=== PATIENT | male | born 1940 | race Caucasian/White ===

== ENCOUNTER 2016-08-22 15:29 | Inpatient (IN) | payer MEDICARE, BC ==
[~2016-08-22] VITALS: Ht 157.5 cm; Wt 61.7 kg
--- NOTE | ~2016-08-22 | CN ---
PATIENT NAME:HOLA NICOLAS MEDICAL RECORD: [id number] : 38 LOCATION:[facility] ADMIT DATE: 08/22/16 ACCOUNT: [id number] CONSULTING PHYSICIAN: DIA LOVE MD REFERRING PHYSICIAN: CHEYENNE MURPHY MD DATE OF CONSULTATION: 08/23/2016 HISTORY OF PRESENT ILLNESS: Mr. Nicolas is a 76-year-old white male, who has had a 9-day history of increasing back pain resulting in difficulty ambulation. His notes apparent weakness on his right lower extremity and he has had a previous history of weakness in his lower extremities, which he had an extensive workout out of state with apparently no definite cause as per the . He denies any bowel or bladder change. He complains of low back pain after a fall 9 days ago. PHYSICAL EXAMINATION: GENERAL: Shows well-developed, well-nourished 76-year-old white male with complaints of back pain, lying supine in the bed. NEUROLOGIC: Cranial nerves intact. Motor strength is 5/5 and equal in all 4 extremities to detailed testing. DTRs are 2+ and equal over biceps, triceps and wrist. Patella is 3+ and equal. Achilles is 3+ and equal. He has 6 beats of clonus, both feet and decreased ____ both greater toes. Plain films show compression fractures at L1, L2, L3, and L5, with approximately with anywhere between 30% to 50% loss of height. IMPRESSION: Subacute lumbar compression fractures, unknown neuropathy. PLAN: MRI to determine which compression fractures are recent and rule out any spinal cord compression in light of his ____ tract signs with sustained clonus. Thank you for consult and we will follow with you. TRANSINT:[id number] Voice Confirmation ID: [id number] DOCUMENT ID: [id number] DIA LOVE MD CC: [id number] DICTATION DATE: 08/23/16 1405 VETERINARIAN ASSISTANT: 08/23/162027 ADM IN [place] [id number] [place] [id number]
[~2016-08-22 15:29] MED LIST: ACETAMINOPHEN500 M1 PO; ADDERALL XR 2020 MG PO; ADVAIR 500/501 DISK INH; IPRAT-ALBUT 0.5-3 ML UPD; LOVENOX40 MG/0.4 SC; MULTIPLE VITAMI1 TA1 PO; ZOFRAN4 MG PO; ZOLOFT50 MG PO
[2016-08-22 16:36] LABS: BASOPHILS 0.6 % (0.0-2.0); EOSINOPHILS 4.1 % (0-7); HEMATOCRIT 40.7 % (42.0-54.0); HEMOGLOBIN 13.9 g/dL (13.5-17.5); IMMATURE GRANULOCYTES 0.9 % (0-5); LYMPHOCYTES 28.1 % (15-50); MCH 31.8 pg (26.0-34.0); MCHC 34.2 g/dL (31.0-37.0); MCV 93.1 fL (80.0-100.0); MEAN PLATELET VOLUME 10.7 fL (7.4-10.4); NEUTROPHILS 56.3 % (40-80); RBC 4.37 10x6/uL (4.20-6.10); RDW 13.5 % (11.5-14.5); WBC 6.4 10x3/uL (4.8-10.8)
[2016-08-22 16:37] LABS: PLATELET COUNT 144 10x3/uL (130-400)
[2016-08-22 17:01] LABS: APPEARANCE CLEAR (CLEAR); BILIRUBIN NEGATIVE (NEGATIVE); COLOR YELLOW (YELLOW); GLUCOSE NEGATIVE (NEGATIVE); KETONE NEGATIVE (NEGATIVE); LEUKOCYTE ESTERASE NEGATIVE (NEGATIVE); NITRITE NEGATIVE (NEGATIVE); PROTEIN NEGATIVE (NEGATIVE); SPECIFIC GRAVITY 1.015 (1.005-1.020); UROBILINOGEN NORMAL (NORMAL)
[2016-08-22 17:44] LABS: ALBUMIN 3.2 g/dL (3.4-5.0); ANION GAP 15.6 mmol/L (8-16); BILIRUBIN - TOTAL 0.47 mg/dL (0.2-1.3); CALCIUM 8.8 mg/dL (8.5-10.1); CARBON DIOXIDE 25.3 mmol/L (21.0-32.0); CREATININE - SERUM 1.1 mg/dL (0.6-1.3); POTASSIUM - SERUM 3.9 mmol/L (3.5-5.1)
[2016-08-22 19:27] VITALS: BMI 24.9
[2016-08-22] MEDS ORDERED: SINEMET 10/101 UDTAB PO (19:43)
[2016-08-22] MEDS ORDERED: CELEXA10 MG PO (19:43)
[2016-08-22] MEDS ORDERED: ASPIRIN81 MG PO (19:44)
[2016-08-22] MEDS ORDERED: VITAMIN B-121000 MCG PO (19:45)
[2016-08-22 20:00] VITALS: BP 112/69
--- NOTE | 2016-08-22 20:12 | NUR ---
NS HUNG PER ORDERS, PAN WELL, CL IN REACH
[2016-08-23] VITALS: BP 126/73
[2016-08-23 04:00] VITALS: BP 151/67
--- NOTE | 2016-08-23 06:16 | NUR ---
FLUIDS HUNG PER MAR, PAN WELL, NO NEEDS NOTED, FALL PRECAUTIONS IN PLACE, CL IN REACH
--- NOTE | 2016-08-23 07:40 | NUR ---
ASSESSMENT PER FLOW SHEET.PT WITHOUT DISTRESS.BED ALARM ON AND FUCTIONING.FALL PREVENTION IN PLACE.DOOR OPEN TO MONITOR
[2016-08-23 08:41] VITALS: BP 132/73
[2016-08-23 11:01] LABS: BASOPHILS 0.7 % (0.0-2.0); EOSINOPHILS 4.1 % (0-7); HEMATOCRIT 36.4 % (42.0-54.0); HEMOGLOBIN 12.3 g/dL (13.5-17.5); IMMATURE GRANULOCYTES 0.1 % (0-5); LYMPHOCYTES 31.5 % (15-50); MCH 31.5 pg (26.0-34.0); MCHC 33.8 g/dL (31.0-37.0); MCV 93.1 fL (80.0-100.0); MEAN PLATELET VOLUME 9.3 fL (7.4-10.4); MONOCYTES 9.2 % (2-11); NEUTROPHILS 54.4 % (40-80); RBC 3.91 10x6/uL (4.20-6.10); RDW 13.8 % (11.5-14.5); WBC 6.8 10x3/uL (4.8-10.8)
[2016-08-23 11:02] LABS: PLATELET COUNT 223 10x3/uL (130-400)
[2016-08-23 11:26] LABS: ANION GAP 12.2 mmol/L (8-16); BILIRUBIN - TOTAL 0.6 mg/dL (0.2-1.3); CALCIUM 8.3 mg/dL (8.5-10.1); CREATININE - SERUM 1.1 mg/dL (0.6-1.3); POTASSIUM - SERUM 4.2 mmol/L (3.5-5.1); PROTEIN - SERUM 6.5 g/dL (6.4-8.2)
--- NOTE | 2016-08-23 12:22 | NUR ---
REMAINS WITHOUT NEEDS.CALL LIGHT IN REACH
[2016-08-23 13:58] VITALS: BP 126/75
[2016-08-23 14:28] VITALS: Ht 157.5 cm; Wt 61.7 kg
--- NOTE | 2016-08-23 16:40 | NUR ---
Patient Name: HOLA FLOWERS Admission Status: ER Accout number: [id number] Admission Date: 08-22-2016 : 1940 Admission Diagnosis: Attending: SHARON Current LOS: 1 Anticipated DC Date: 08-28-2016 Planned Disposition: Home or Self Care Primary Insurance: MEDICARE A & B Discharge Planning Comments: CM MET WITH PATIENT AND CALLED (TANYA) REGARDING D/C NEEDS AND PLANS. PATIENT STATED HE LIVES WITH HIS AND SHE WILL DRIVE HIM HOME AT DISCHARGE. PATIENT STATED THERE ARE 2 STEPS TO ENTER HIS HOME AND NO STAIRS INSIDE. PATIENT IS INDEPENDENT WITH HIS CARE AND HAS A WALKER, WHEELCHAIR, SHOWER CHAIR, AND BS COMMODE AT HOME IF NEEDED. PATIENTS PCP IS DR. SEAMAN AND PHARMACY IS [facility] AT THE [facility]. PATIENT STATED HE DOES NOT WANT HOME HEALTH AND WILL SEE WHAT HAPPENS BEFORE DISCHARGE. CM WILL CONTINUE TO FOLLOW PATIENT WITH D/C NEEDS AND PLANS. PCP DR[facility] IN [facility] [phone] TANYA () [phone] Drone Software Development Engineer: Jemima Daley Is the patient Alert and Oriented? Yes 0 * How many steps to enter\exit or inside your home? 2 W/O RAIL 0 * PCP DR. SEAMAN 0 * Pharmacy [facility] 0 * Preadmission Environment Home with Family 0 * ADLs Independent 0 * Equipment Bedside Commode Shower Chair Walker Wheelchair 0 * List name and contact numbers for known caregivers / representatives who currently or will assist patient after discharge: TANYA (SPOUSE) [phone] 0 * Community resources currently utilized None 0 * Additional services required to return to the preadmission environment? Yes 0 * Can the patient safely return to the preadmission environment? Yes 0 * Has this patient been hospitalized within the prior 30 days at any hospital? No 0 Grand Total: 0
--- NOTE | 2016-08-23 17:00 | NUR ---
REMAINS WITHOUT NEEDS,WITHOUT DISTRESS.MONITOR
[2016-08-23 17:09] VITALS: BP 114/69
--- NOTE | 2016-08-23 18:24 | NUR ---
WITHOUT NEEDS,WITHOUT DISTRESS.CONT PLAN OF CARE
[2016-08-23 20:00] VITALS: BP 113/58
--- NOTE | 2016-08-23 20:15 | NUR ---
PT RETURNED FROM IR, ASSESSMENT COMPLETED, NO DISTRESS NOTED, DENIES NEEDS, FALL PRECAUTIONS IN PLACE, CL IN REACH, WILL MONITOR
--- NOTE | 2016-08-23 21:54 | NUR ---
LYING IN BED WATCHING TV, DENIES NEEDS AT THIS TIME, FALL PRECAUTIONS IN PLACE, CL IN REACH
--- NOTE | 2016-08-23 23:21 | NUR ---
RESTING WITH EYES CLOSED, RESP WITH EASE, NO DISTRESS NOTED, FALL PRECAUTIONS IN PLACE, CL IN REACH
[2016-08-24] VITALS: BP 101/64
--- NOTE | 2016-08-24 01:18 | NUR ---
CONTINUES TO REST WITH EYES CLOSED, RESP WITH EASE, NO DISTRESS NOTED, CL IN REACH
[2016-08-24 04:00] VITALS: BP 130/80
[2016-08-24 05:40] LABS: BASOPHILS 0.6 % (0.0-2.0); EOSINOPHILS 4.3 % (0-7); HEMATOCRIT 37.6 % (42.0-54.0); HEMOGLOBIN 12.6 g/dL (13.5-17.5); IMMATURE GRANULOCYTES 0.1 % (0-5); LYMPHOCYTES 32.1 % (15-50); MCH 31.4 pg (26.0-34.0); MCHC 33.5 g/dL (31.0-37.0); MCV 93.8 fL (80.0-100.0); MEAN PLATELET VOLUME 9.7 fL (7.4-10.4); MONOCYTES 10.1 % (2-11); NEUTROPHILS 52.8 % (40-80); PLATELET COUNT 238 10x3/uL (130-400); RBC 4.01 10x6/uL (4.20-6.10); RDW 13.6 % (11.5-14.5); WBC 6.9 10x3/uL (4.8-10.8)
[2016-08-24 06:09] LABS: CALC OSMOLALITY 280 mosm/kg (275-300); CALCIUM 8.4 mg/dL (8.5-10.1); CARBON DIOXIDE 26.4 mmol/L (21.0-32.0); CHLORIDE - SERUM 104 mmol/L (98-107); GLUCOSE 89 mg/dL (74-106); POTASSIUM - SERUM 3.7 mmol/L (3.5-5.1); SODIUM 141 mmol/L (136-145); eGFR NON AFRICAN AMERICAN 77 mL/min (90-120)
[2016-08-24 06:10] LABS: UREA NITROGEN 14 mg/dL (7-18)
[2016-08-24 08:01] VITALS: BP 139/84
[2016-08-24 09:18] LABS: FOLATE (FOLIC ACID) - SERUM 17.6 ng/mL (>3.0)
--- NOTE | 2016-08-24 11:30 | NUR ---
PATIENT SITTING UP IN BED WITH EYES OPEN. NO COMPLAINTS. FAMILY AT BEDSIDE. CALL LIGHT WITHIN REACH.
[2016-08-24 12:11] VITALS: BP 128/66
[2016-08-24 15:44] VITALS: BP 138/78
--- NOTE | 2016-08-24 18:56 | NUR ---
PT INCONTINENT OF BLADDER BED BATH AND FULL BED CHANGE DONE EARLIER THIS SHIFT WILL OCCASIONALY USE URINAL HOWEVER MOSTLY INCT. PT ALERT TO SURROUNDINGS BUT ORIENTED TO NAME ONLY. JIHAN MONITOR
[2016-08-24 20:00] VITALS: BP 138/76
--- NOTE | 2016-08-24 21:10 | NUR ---
PATIENT RESTING IN BED. CONFUSED TO TIME, PLACE, AND SITUATION. NO SIGNS OF DISTRESS NOTED. SHIFT ASSESSMENT COMLETED. DENIES ANY NEEDS AT THIS TIME. BED LOW. CALL LIGHT IN REACH
[2016-08-25] VITALS (16 sets, daily range): BP systolic 109–155; BP diastolic 65–98
[2016-08-25 06:09] LABS: BASOPHILS 0.5 % (0.0-2.0); EOSINOPHILS 5.8 % (0-7); HEMATOCRIT 37.6 % (42.0-54.0); HEMOGLOBIN 12.9 g/dL (13.5-17.5); IMMATURE GRANULOCYTES 0.2 % (0-5); LYMPHOCYTES 27.8 % (15-50); MCH 31.9 pg (26.0-34.0); MCHC 34.3 g/dL (31.0-37.0); MCV 92.8 fL (80.0-100.0); MEAN PLATELET VOLUME 9.2 fL (7.4-10.4); MONOCYTES 9.8 % (2-11); NEUTROPHILS 55.9 % (40-80); PLATELET COUNT 251 10x3/uL (130-400); RBC 4.05 10x6/uL (4.20-6.10); RDW 13.6 % (11.5-14.5); WBC 6.3 10x3/uL (4.8-10.8)
[2016-08-25 06:21] LABS: CALC OSMOLALITY 282 mosm/kg (275-300); CALCIUM 8.7 mg/dL (8.5-10.1); CARBON DIOXIDE 27.9 mmol/L (21.0-32.0); CHLORIDE - SERUM 106 mmol/L (98-107); GLUCOSE 100 mg/dL (74-106); POTASSIUM - SERUM 3.4 mmol/L (3.5-5.1); SODIUM 142 mmol/L (136-145); UREA NITROGEN 12 mg/dL (7-18); eGFR NON AFRICAN AMERICAN 77 mL/min (90-120)
--- NOTE | 2016-08-25 07:10 | NUR ---
REPORT RECEIVED FROM FIRE SUPPORT SPECIALIST NURSE. IN OR AT THIS TIME.
--- NOTE | 2016-08-25 09:10 | NUR ---
RECEIVED TO ROOM 2234 FROM RECOVERY ROOM VIA BED. ASSESSMENT COMPLETED. O2 @ 2L PER NC. FAMILY IN ROOM. BED ALARM ON. CALL LIGHT IN REACH. WILL CONTINUE WITH PLAN OF CARE. SCDs TURNED ON. C/O PAIN OF 5. NORCO PO WITH AM MEDS ADMINISTERED.
--- NOTE | 2016-08-25 10:30 | NUR ---
STATES PAIN IS UP TO A7. PASSWORD OBTAINED.
--- NOTE | 2016-08-25 11:00 | NUR ---
LYING IN BED,WITHOUT DISTRESS. AT SIDE.CALL LIGHT IN REACH
--- NOTE | 2016-08-25 12:55 | NUR ---
EATING LUNCH AT THIS TIME. FATOU LIGHT IN REACH.
--- NOTE | 2016-08-25 14:37 | NUR ---
NUTRITION MONITORING & EVAL CHART REVIEWED. PT VISIT. TOLERATING SOFT DIET, ~25% INTAKE LUNCH. WILL CONTINUE TO PROVIDE DIET, MONITOR PO INTAKE. RD FOLLOWING
--- NOTE | 2016-08-25 14:40 | NUR ---
DENIES PAIN AT THIS TIME. FAMILY IN ROOM. CALL LIGHT IN REACH.
--- NOTE | 2016-08-25 15:03 | NUR ---
Rehab Prescreening Consult recieved and the chart has been reviewed. He is S/P Kyphoplasty done earlier today. He is a good inpatient rehab candidate, but has not had any therapy. He has an OT and a PT eval pending. Rehab will follow his progress with PT, and plan to accept when the work up is completed and he can tolerate 3 hrs of therapy 5 days a week. Angelia Benites RN Clinical Liaison, rehab
--- NOTE | 2016-08-25 15:12 | NUR ---
C/O PAIN O F7. NORCO PO. CALL LIGHT IN REACH.
--- NOTE | 2016-08-25 17:20 | NUR ---
HAS NOT HAD A BOWEL MOVEMENT OF THIS TIME.
--- NOTE | 2016-08-25 19:01 | NUR ---
NO CHANGES IN INITIAL ASSESSMENT. STILL REFUSES SCDs. CALL LIGHT IN REACH. IN ROOM. WILL CONTINUE WITH PLAN OF CARE.
[2016-08-26 00:23] VITALS: BP 129/65
--- NOTE | 2016-08-26 01:21 | NUR ---
ASSESSED AT THE BEGINNING OF THE SHIFT. PT IS ALERT AND HAS SOME CONFUSION NOTED. THERE IS A SMALL DRESSING TO HIS BACK FROM SURGERY. HE HAS SCD'S AND A URINAL AT THE BEDSIDE. HIS WAS IN THE ROOM AT THE FIRST OF THE SHIFT. HE HAS NOT HAD ANY COMPLAINTS AND SEEMS TO BE COMFORTABLE AT THIS TIME. THE BED IS LOW, RAILS UP X'S 2 WITH THE CALL LIGHT AT HAND.
[2016-08-26 04:00] VITALS: BP 133/82
[2016-08-26 06:58] LABS: BASOPHILS 0.5 % (0.0-2.0); EOSINOPHILS 4.7 % (0-7); HEMATOCRIT 37.7 % (42.0-54.0); HEMOGLOBIN 12.5 g/dL (13.5-17.5); IMMATURE GRANULOCYTES 0.4 % (0-5); LYMPHOCYTES 20.3 % (15-50); MCH 31.1 pg (26.0-34.0); MCHC 33.2 g/dL (31.0-37.0); MCV 93.8 fL (80.0-100.0); MONOCYTES 8.6 % (2-11); NEUTROPHILS 65.5 % (40-80); PLATELET COUNT 260 10x3/uL (130-400); RBC 4.02 10x6/uL (4.20-6.10); RDW 13.9 % (11.5-14.5)
[2016-08-26 06:59] LABS: WBC 8.2 10x3/uL (4.8-10.8)
[2016-08-26 07:10] LABS: CALC OSMOLALITY 273 mosm/kg (275-300); CALCIUM 8.6 mg/dL (8.5-10.1); CARBON DIOXIDE 26.9 mmol/L (21.0-32.0); CHLORIDE - SERUM 103 mmol/L (98-107); CREATININE - SERUM 0.9 mg/dL (0.6-1.3); GLUCOSE 99 mg/dL (74-106); POTASSIUM - SERUM 3.6 mmol/L (3.5-5.1); SODIUM 137 mmol/L (136-145); UREA NITROGEN 12 mg/dL (7-18); eGFR NON AFRICAN AMERICAN 87 mL/min (90-120)
[2016-08-26 08:20] VITALS: BP 143/79
[2016-08-26 12:55] VITALS: BP 115/61
--- NOTE | 2016-08-26 12:55 | NUR ---
PATIENT ALERT IN LOW APONTE POSITION RESTING QUIETLY. RESPIRATIONS EVEN AND UNLABORED. SIDE RAILS UP X2. BED IN LOW POSITION. CALL LIGHT IN REACH. FAMILY AT BEDSIDE.
[2016-08-26 16:37] VITALS: BP 121/65
--- NOTE | 2016-08-26 18:59 | NUR ---
PT DAY 1 POST OP DRESSING INTACT TO BACK X 2 FROM KYPHOPLASTY YESTERDAY. PT WITH INCT EPISODES PT FAMILY AT BEDSIDE. TOLERATES ALL CARE WELL.
[2016-08-26 20:00] VITALS: BP 151/91
[2016-08-27] VITALS: BP 140/84
[2016-08-27 04:00] VITALS: BP 142/74
--- NOTE | 2016-08-27 04:44 | NUR ---
PATIENT RESTING WITH EYES CLOSED AND NO VISIBLE SIGNS OF DISTRESS. BED IN LOWEST POSITION AND CALL LIGHT WITHIN REACH.
[2016-08-27 07:02] LABS: BASOPHILS 0.4 % (0.0-2.0); EOSINOPHILS 4.6 % (0-7); HEMATOCRIT 36.7 % (42.0-54.0); HEMOGLOBIN 12.4 g/dL (13.5-17.5); IMMATURE GRANULOCYTES 0.1 % (0-5); LYMPHOCYTES 24.6 % (15-50); MCH 31.5 pg (26.0-34.0); MCHC 33.8 g/dL (31.0-37.0); MCV 93.1 fL (80.0-100.0); MONOCYTES 9.3 % (2-11); PLATELET COUNT 259 10x3/uL (130-400); RBC 3.94 10x6/uL (4.20-6.10); RDW 13.8 % (11.5-14.5); WBC 7.5 10x3/uL (4.8-10.8)
[2016-08-27 07:09] LABS: CALC OSMOLALITY 276 mosm/kg (275-300); CALCIUM 8.5 mg/dL (8.5-10.1); CARBON DIOXIDE 25.5 mmol/L (21.0-32.0); CHLORIDE - SERUM 104 mmol/L (98-107); GLUCOSE 93 mg/dL (74-106); POTASSIUM - SERUM 3.5 mmol/L (3.5-5.1); SODIUM 139 mmol/L (136-145); UREA NITROGEN 9 mg/dL (7-18); eGFR NON AFRICAN AMERICAN 77 mL/min (90-120)
--- NOTE | 2016-08-27 07:30 | NUR ---
AWAKE AND ALERT. ORIENTED TO SELF ONLY ATTEMPTS PER STAFF TO REORIENT WITHOUT SUCCESS. INCONTINENT OF URINE. SKIN CARE PER STAFF. LINENS CHANGED. LUNGS ARE CLEAR BILATERALLY, NO COUGH NOTED. SKIN IS INTACT WITHOUT REDNESS. IV TO LEFT WRIST IS PATENT WITHOUT REDNESS AT INSERTION SITE. DENIES NEEDS.
[2016-08-27 10:07] VITALS: BP 141/88
--- NOTE | 2016-08-27 10:45 | NUR ---
RESTING QUIETLY IN BED. FAMILY AT BEDSIDE.
[2016-08-27 12:50] VITALS: BP 114/60
[2016-08-27 17:17] VITALS: BP 143/85
--- NOTE | 2016-08-27 18:37 | NUR ---
REFUSED OFFER OF ASSIST WITH URINAL. ATE A LARGE MEAL THAT FAMILY BROUGHT IN. NO CHANGES NOTED. DENEIS NEEDS.
[2016-08-27 19:00] VITALS: BP 103/67
[2016-08-28] VITALS: BP 136/72
[2016-08-28 04:00] VITALS: BP 127/75
[2016-08-28 06:13] LABS: BASOPHILS 0.4 % (0.0-2.0); EOSINOPHILS 3.4 % (0-7); HEMATOCRIT 35.4 % (42.0-54.0); HEMOGLOBIN 11.8 g/dL (13.5-17.5); IMMATURE GRANULOCYTES 0.4 % (0-5); MCH 31.1 pg (26.0-34.0); MCHC 33.3 g/dL (31.0-37.0); MCV 93.4 fL (80.0-100.0); MEAN PLATELET VOLUME 9.2 fL (7.4-10.4); MONOCYTES 8.9 % (2-11); NEUTROPHILS 54.9 % (40-80); PLATELET COUNT 267 10x3/uL (130-400); RBC 3.79 10x6/uL (4.20-6.10); RDW 13.7 % (11.5-14.5)
[2016-08-28 06:19] LABS: ANION GAP 12.4 mmol/L (8-16); CALCIUM 8.5 mg/dL (8.5-10.1); CARBON DIOXIDE 27.1 mmol/L (21.0-32.0); CREATININE - SERUM 1.2 mg/dL (0.6-1.3); POTASSIUM - SERUM 3.5 mmol/L (3.5-5.1)
--- NOTE | 2016-08-28 07:40 | NUR ---
SITTING UP IN BED, DENIES NEEDS, WILL CONTINUE TO MONITOR, CALL LIGHT IN REACH, BED LOWEST POSITION, BEDSIDE COMMODE
[2016-08-28 08:39] VITALS: BP 146/82
[2016-08-28 11:30] VITALS: BP 113/62
[2016-08-28] MEDS ORDERED: IPRAT-ALBUT 0.5-3 ML UPD ×2 (11:57)
[2016-08-28] MEDS ORDERED: THIAMINE HCL50 MG PO (11:58)
[2016-08-28] MEDS ORDERED: PROTONIX40 MG PO (11:58)
[2016-08-28] MEDS ORDERED: FOLIC ACID1 MG PO (11:58)
[2016-08-28] MEDS ORDERED: NICODERM C1 PATCH .2 TRANSDERM (11:59)
--- NOTE | 2016-08-28 15:12 | NUR ---
CM REASSESSMENT NOTE: PATIENT IS GOING TO IP REHAB TODAY. IMM NOTICE SERVED AND SIGNED.
--- NOTE | 2016-08-28 18:27 | NUR ---
DISCHARGE PAPERS AND INSTRUCTIONS GIVEN, QUESTIONS ANSWERED, DISCHARGED PER WC TO REHAB
== END 2016-08-28 18:30 | DRG 477 ==
LOC: D.ER 15:29 → D.MS 18:11
PROVIDERS: Emergency Medicine; Neurological Surgery; ADMIT Emergency Medicine
PROC: 0QB03ZX Excision of Lumbar Vertebra, Percutaneous Approach, Diagnostic (ICD-10-PCS; 2016-08-25)
PROC: 0QU03JZ Supplement Lumbar Vertebra with Synthetic Substitute, Percutaneous Approach (ICD-10-PCS; 2016-08-25)
PROC: 0QS03ZZ Reposition Lumbar Vertebra, Percutaneous Approach (ICD-10-PCS; principal; 2016-08-25 07:30)
DX: S32.019A Unspecified fracture of first lumbar vertebra, initial encounter for closed fracture (principal); R53.2 Functional quadriplegia; F17.203 Nicotine dependence unspecified, with withdrawal; J98.11 Atelectasis; S32.059A Unspecified fracture of fifth lumbar vertebra, initial encounter for closed fracture; W19.XXXA Unspecified fall, initial encounter; R32 Unspecified urinary incontinence; J43.9 Emphysema, unspecified; Z91.81 History of falling; R91.1 Solitary pulmonary nodule; K21.9 Gastro-esophageal reflux disease without esophagitis

== ENCOUNTER 2016-08-28 18:55 | Inpatient (IN) | payer MEDICARE, BC ==
[~2016-08-28] VITALS: Ht 157.5 cm; Wt 61.7 kg
--- NOTE | 2016-08-28 18:25 | NUR ---
RECIEVED BY WC,CL IN REACH.ORIENTED TO SURROUNDINGS.
[~2016-08-28 18:55] MED LIST changes: +ASPIRIN81 MG PO; +CELEXA10 MG PO; +FOLIC ACID1 MG PO; +NICODERM C1 PATCH .2 TRANSDERM; +PROTONIX40 MG PO; +SINEMET 10/101 UDTAB PO; +THIAMINE HCL50 MG PO; +VITAMIN B-121000 MCG PO
[2016-08-28 19:45] VITALS: BP 134/73
--- NOTE | 2016-08-28 20:00 | NUR ---
PT IN BED WITH HOB UP FOR COMFORT, EYES OPEN, NO COMPLAINTS, BED IN LOWEST POSITION AND CALL LIGHT WITHIN REACH.
[2016-08-28 23:48] VITALS: BMI 25.0
--- NOTE | 2016-08-29 00:05 | NUR ---
ADMISSION ASSESSMENT COMPLETE. PATIENT DENIES CURRENT NEEDS.
--- NOTE | 2016-08-29 01:00 | NUR ---
ASSESSMENT DONE BY MAYCOL HUNT.
--- NOTE | 2016-08-29 05:00 | NUR ---
PT IN BED WITH HOB UP FOR COMFORT, EYES CLOSED, CHEST RISING AND FALLING, BED IN LOWEST POSTIION AND CALL LIGHT WITHIN REACH.
[2016-08-29 06:56] LABS: BASOPHILS 0.6 % (0.0-2.0); EOSINOPHILS 6.1 % (0-7); HEMOGLOBIN 12.4 g/dL (13.5-17.5); IMMATURE GRANULOCYTES 0.3 % (0-5); LYMPHOCYTES 25.5 % (15-50); MCH 31.2 pg (26.0-34.0); MCHC 33.5 g/dL (31.0-37.0); MCV 93.2 fL (80.0-100.0); MEAN PLATELET VOLUME 8.9 fL (7.4-10.4); MONOCYTES 10.6 % (2-11); NEUTROPHILS 56.9 % (40-80); PLATELET COUNT 254 10x3/uL (130-400); RBC 3.97 10x6/uL (4.20-6.10); RDW 13.7 % (11.5-14.5); WBC 6.4 10x3/uL (4.8-10.8)
[2016-08-29 07:30] LABS: CALC OSMOLALITY 279 mosm/kg (275-300); CALCIUM 8.7 mg/dL (8.5-10.1); CHLORIDE - SERUM 105 mmol/L (98-107); GLUCOSE 90 mg/dL (74-106); POTASSIUM - SERUM 3.3 mmol/L (3.5-5.1); SODIUM 140 mmol/L (136-145); UREA NITROGEN 14 mg/dL (7-18); eGFR NON AFRICAN AMERICAN 77 mL/min (90-120)
[2016-08-29 08:00] VITALS: BP 119/73
--- NOTE | 2016-08-29 08:00 | NUR ---
SHIFT ASSMT COMPLETED.CL IN REACH.PLEASANTLY CONFUSED.
--- NOTE | 2016-08-29 12:00 | NUR ---
SITTING UP IN WC EATING LUNCH.FAMILY AT BEDSIDE.
[2016-08-29 14:26] VITALS: Ht 157.5 cm; Wt 61.7 kg
--- NOTE | 2016-08-29 16:00 | NUR ---
RESTING QUIETLY.DENIES NEEDS.
--- NOTE | 2016-08-29 19:30 | NUR ---
PT IN BED WITH EYES OPEN RECEIVING SPONGE BATH BY OCCUPATIONAL THERAPIST. NO COMPLAINTS OR CONCERNS MADE KNOWN. CALL LIGHT IN REACH.
--- NOTE | 2016-08-30 02:07 | NUR ---
PT IN BED WITH EYES CLOSED AND CHEST RISING. NO SIGN/SYMPTOMS OF DISTRESS NOTED. CALL LIGHT IN REACH.
[2016-08-30 03:06] VITALS: BP 129/73
[2016-08-30 06:19] LABS: BASOPHILS 0.9 % (0.0-2.0); EOSINOPHILS 5.8 % (0-7); HEMATOCRIT 38.5 % (42.0-54.0); HEMOGLOBIN 12.8 g/dL (13.5-17.5); IMMATURE GRANULOCYTES 0.2 % (0-5); LYMPHOCYTES 39.8 % (15-50); MCH 31.6 pg (26.0-34.0); MCHC 33.2 g/dL (31.0-37.0); MCV 95.1 fL (80.0-100.0); MEAN PLATELET VOLUME 9.3 fL (7.4-10.4); MONOCYTES 8.2 % (2-11); NEUTROPHILS 45.1 % (40-80); RBC 4.05 10x6/uL (4.20-6.10); RDW 13.9 % (11.5-14.5); WBC 6.6 10x3/uL (4.8-10.8)
[2016-08-30 06:23] LABS: PLATELET COUNT 306 10x3/uL (130-400)
[2016-08-30 06:57] LABS: ANION GAP 13.1 mmol/L (8-16); CALCIUM 8.7 mg/dL (8.5-10.1); CARBON DIOXIDE 26.3 mmol/L (21.0-32.0); CREATININE - SERUM 1.1 mg/dL (0.6-1.3); POTASSIUM - SERUM 3.4 mmol/L (3.5-5.1)
--- NOTE | 2016-08-30 07:30 | NUR ---
RESTING QUIETLY IN BED. CALL LIGHT IN REACH. NO S/S DISTRESS.
[2016-08-30 10:28] VITALS: BP 121/69
--- NOTE | 2016-08-30 12:46 | NUR ---
SITTING UP IN BED EATING LUNCH. APPETITE POOR TO FAIR. BED ALARM IN USE. INCONT OF URINE.
--- NOTE | 2016-08-30 17:55 | NUR ---
SITTING UP IN W/C IN ROOM. IN ROOM WITH PT. HE IS STILL CONFUSED AND NEEDS SUPERVISION FOR SAFETY. BED AND CHAIR ALARM IN USE.
[2016-08-30 19:15] VITALS: BP 132/72
--- NOTE | 2016-08-30 19:40 | NUR ---
PT. SITTING UP IN W/C AND WATCHING TV. ASSESSMENT COMPLETED. NO VOICED NEEDS AT THIS TIME AND PT. STATED HE WANTED TO SIT UP LONGER AND WOULD LET ME KNOW WHEN HE WAS READY TO GO BACK TO BED. CALL LIGHT WITHIN REACH AND W/C HAS THE LINK BED ALARM ON IT.
--- NOTE | 2016-08-30 21:33 | NUR ---
PT. IN BED WITH HOB UP FOR COMFORT AND IS WATCHING TV. NO VOICED NEEDS AT THIS TIME AND HIS CALL LIGHT IS WITHIN REACH.
--- NOTE | 2016-08-30 23:33 | NUR ---
PT. IN BED WITH HOB UP FOR COMFORT AND CONTINUES TO WATCH TV. NO VOICED NEEDS AND HIS CALL LIGHT REMAINS WITHIN REACH.
--- NOTE | 2016-08-31 01:27 | NUR ---
PT. IN BED WITH HOB UP FOR COMFORT WITH EYES CLOSED AND RESP. DEEP AND EVEN. CALL LIGHT WITHIN REACH.
--- NOTE | 2016-08-31 03:18 | NUR ---
PT. IN BED WITH HOB UP FOR COMFORT WITH EYES CLOSED AND RESP. EVEN. CALL LIGHT WITHIN REACH.
--- NOTE | 2016-08-31 07:30 | NUR ---
SITTING UP IN BED. EYES CLOSED. NO S/S DISTRESS.
[2016-08-31 08:31] VITALS: BP 119/67
--- NOTE | 2016-08-31 10:55 | NUR ---
Nutrition Follow Up: Pt appeared confused at the time of RD visit. He stated that his appetite was good and that he was eating well. Pt refused supplements at this time. Pt is eating 23% meal avg on a regular diet. +BM 08/30/16. Wt loss 1# since admit. Meds noted including Thiamine, MV, Folic Acid, Vit B12. Labs reviewed. Pt with poor po intake - not meeting est nutritional needs at this time. Rec appetite stimulant. Rec continue current diet. Will continue to provide selective menus and honor food preferences. RD following.
--- NOTE | 2016-08-31 12:21 | NUR ---
SITTING UP IN CHAIR IN ROOM. FAMILY PRESENT AND BROUGHT HIS LUNCH. HE NEEDS PROMPTS AND ASST WITH ADL'S.
--- NOTE | 2016-08-31 18:19 | NUR ---
SITTING UP IN BED EATING SUPPER. ANSWERS SHORT QUESTIONS AND IS CONFUSED. HE FOLLOWS SIMPLE COMMANDS.
--- NOTE | 2016-08-31 19:50 | NUR ---
PT. SITTING UP IN W/C WATCHING TV. ASSESSMENT COMPLETED. PT. WANTING TO GET BACK INTO BED NOW. ASSISTED PT. BACK TO BED AND POSITIONED TO COMFORT. CALL LIGHT WITHIN REACH.
[2016-08-31 21:53] VITALS: BP 116/68
--- NOTE | 2016-08-31 23:13 | NUR ---
PT. IN BED WITH HOB UP FOR COMFORT WITH EYES CLOSED AND RESP. DEEP AND EVEN. CALL LIGHT WITHIN REACH.
--- NOTE | 2016-09-01 02:04 | NUR ---
PT. IN BED WITH HOB UP FOR COMFORT WITH EYES CLOSED AND RESP. DEEP AND EVEN. CALL LIGHT WITHIN REACH.
--- NOTE | 2016-09-01 04:08 | NUR ---
PT. IN BED WITH HOB UP FOR COMFORT WITH EYES CLOSED AND RESP. DEEP AND EVEN. CALL LIGHT REMAINS WITHIN REACH.
[2016-09-01 06:41] LABS: BASOPHILS 0.4 % (0.0-2.0); HEMATOCRIT 36.9 % (42.0-54.0); HEMOGLOBIN 12.3 g/dL (13.5-17.5); IMMATURE GRANULOCYTES 0.3 % (0-5); LYMPHOCYTES 26.8 % (15-50); MCH 31.3 pg (26.0-34.0); MCHC 33.3 g/dL (31.0-37.0); MCV 93.9 fL (80.0-100.0); MEAN PLATELET VOLUME 9.3 fL (7.4-10.4); MONOCYTES 10.1 % (2-11); NEUTROPHILS 58.4 % (40-80); PLATELET COUNT 278 10x3/uL (130-400); RBC 3.93 10x6/uL (4.20-6.10); RDW 13.5 % (11.5-14.5); WBC 6.7 10x3/uL (4.8-10.8)
[2016-09-01 06:52] LABS: ANION GAP 12.4 mmol/L (8-16); CALCIUM 8.3 mg/dL (8.5-10.1); CARBON DIOXIDE 28.2 mmol/L (21.0-32.0); CREATININE - SERUM 1.1 mg/dL (0.6-1.3); POTASSIUM - SERUM 3.6 mmol/L (3.5-5.1)
--- NOTE | 2016-09-01 07:30 | NUR ---
RESTING QUIETLY IN BED. EYES CLOSED. CALL LIGHT IN REACH
[2016-09-01 10:15] VITALS: BP 118/61
--- NOTE | 2016-09-01 10:28 | NUR ---
SITTING UP IN WC. FOLLOWS SIMPLE ONE STEP COMMANDS BUT NEEDS ENCOURAGEMENT. IS CONFUSED BUT PLEASANT.
--- NOTE | 2016-09-01 19:40 | NUR ---
PT REACEIVED IN WHEELCHAIR AT BEDSIDE WATCHING TV. NO CONCERNS MADE KNONW AT THIS TIME. PT ASKED IF READY TO GET INTO BED BUT REFUSED AT THIS TIME. CALL LIGHT IN REACH.
[2016-09-01 21:26] VITALS: BP 112/68
--- NOTE | 2016-09-02 01:22 | NUR ---
PT IN BED WITH EYES CLOSED AND CHEST RISING. NO CONCERNS NOTED AT THIS TIME. NO NEEDS MADE KNOWN. WILL CONTINUE TO OBSERVE. CALL LIGHT IN REACH.
--- NOTE | 2016-09-02 05:51 | NUR ---
PT IN WHEELCHAIR AT BEDSIDE PER REQUEST. RECEIVED AM MEDICATIONS RECEIVED PER MAR WITHOUT DIFFICULTY. NO CONCERNS MADE KNOWN. CALL LIGHT IN REACH.
[2016-09-02 07:00] VITALS: BP 105/76
--- NOTE | 2016-09-02 08:00 | NUR ---
SHIFT ASSMT COMPLETED.DENIES NEEDS,SITTING UP IN WC.CL IN REACH.
--- NOTE | 2016-09-02 12:00 | NUR ---
INCONTINENT OF URINE,CLEANED AND CLOTHES,LINENS AND BRIEF CHANGED.ASSISTED UP TO WC.CL IN REACH. AT BEDSIDE.
--- NOTE | 2016-09-02 16:00 | NUR ---
IN THERAPY.PAN WELL.
--- NOTE | 2016-09-02 19:57 | NUR ---
PT RECEIVED IN WHEELCHAIR AT BEDSIDE WATCHING TV. NO NEEDS OR CONCERNS NOTED AT THIS TIME. CALL LIGHT IN REACH.
[2016-09-02 20:32] VITALS: BP 131/75
--- NOTE | 2016-09-02 22:15 | NUR ---
PT IN BED WITH EYES OPEN AT THIS TIME. SHOWER GIVEN PT WASHED AREAS WHERE HE ABLE. ASSISTANCE GIVEN WHEN NEEDED. CLEAN LINENS APPLIED TO BED. NO NEEDS MADE KNOWN. CALL LIGHT IN REACH. WILL CONTINUE TO OBSERVE.
--- NOTE | 2016-09-03 01:47 | NUR ---
PT IN BED WITH EYES CLOSED AND CHEST RISING. NO SIGN/SYMPTOMS OF DISTRESS NOTED. CALL LIGHT IN REACH. WILL CONTINUE TO OBSERVE.
--- NOTE | 2016-09-03 05:48 | NUR ---
PT IN BED WATCHING TV. NO CONCERNS NOTED. RECEIVED AM MEDICATION PER MAR WITHOUT DIFFICULTY. CALL LIGHT IN REACH.
[2016-09-03 07:00] VITALS: BP 145/77
--- NOTE | 2016-09-03 07:15 | NUR ---
SCOOTED OFF BED AND EASED TO FLOOR;ASSISTED UP TO WC INCONT OF URINE,CHANGED.PLACED ON ALARM.CL IN REACH.
--- NOTE | 2016-09-03 10:00 | NUR ---
SCOOTING OUT OF WC,ASKED IF HE WANTS TO GO TO BED.STATED NO.ASSISTED UP OUT OF WC AND PLACED IN BED.ALARM ON.
--- NOTE | 2016-09-03 12:00 | NUR ---
OOB TO FOR LUNCH.INCONT OF URINE.CLEANED AND SCRUBS CHANGED.CL IN REACH.ALARM SET.
--- NOTE | 2016-09-03 16:00 | NUR ---
RESTING QUIETLY IN BED.ALARM ON.
--- NOTE | 2016-09-03 20:17 | NUR ---
PT RECEIVED IN BED WATCHING TV. NO COMPLAINTS OR NEEDS MADE KNOWN. CALL LIGHT IN REACH. WILL CONTINUE TO OBSERVE.
[2016-09-04 00:01] VITALS: BP 127/75
--- NOTE | 2016-09-04 01:29 | NUR ---
PT IN BED WITH EYES CLOSED AND CHEST RISING. PT ATTEMPTING TO GET OUT OF BED ON OWN SOUNDING LINK ALARM AT 2315. PT ASKED IF HE WANTS TO GET IN WHEELCHAIR AND SAID YES BECAUSE IT WAS TIME TO START THE DAY. PT REORIENTED TO TIME AND PT STATES THAT HE WOULD STILL LIKE TO GET INTO WHEELCHAIR. URINE INCONTINENCE NOTED WITH PERICARE AND LINEN CHANGE PROVIDED AND TRANSFERED TO WHEELCHAIR. PT NOTED IN WHEELCHAIR WITH EYES CLOSED AND CHEST RISING AT 2430 AND ASSISTED PT BACK TO BED. NO OTHER NEEDS OR CONCERNS MADE KNOWN AT THIS TIME. CALL LIGHT IN REACH. BED ALARM ON. WILL CONTINUE TO OBSERVE.
--- NOTE | 2016-09-04 05:02 | NUR ---
PT IN BED WITH EYES CLOSED AND CHEST RISING. NO SIGN/SYMPTOMS OF DISTRESS NOTED AT THIS TIME. LINK ALARM ON. CALL LIGHT IN REACH.
[2016-09-04 08:13] VITALS: BP 118/70
--- NOTE | 2016-09-04 09:38 | NUR ---
SITTING UP IN W/C IN ROOM. ATE SOME BREAKFAST BUT APPETITE IS FAIR TO POOR. IS CONFUSED. BED AND CHAIR ALARM IN USE
--- NOTE | 2016-09-04 17:32 | NUR ---
WATCHING TV IN ROOM WITH HIS . REMAINS CONFUSED. NEEDS ASST WITH ALL TRANSFERS AND TASKS.
[2016-09-04 20:18] VITALS: BP 126/74
--- NOTE | 2016-09-04 21:09 | NUR ---
PT RECEIVED UP IN WHEELCHAIR AT BEDSIDE WATCHING TV. NO CONCERNS MADE KNOWN AT THIS TIME. CALL LIGHT IN REACH. WILL CONTINUE TO OBSERVE.
--- NOTE | 2016-09-04 23:20 | NUR ---
PT IN BED WITH EYES CLOSED AND CHEST RISING. NO SIGN/SYMPTOMS OF DISTRESS NOTED. CALL LIGHT IN REACH. WILL CONTINUE TO OBSERVE.
--- NOTE | 2016-09-05 01:10 | NUR ---
PT IN BED WITH EYES CLOSED AND CHEST RISING. NO SIGN/SYMPTOMS OF DISTRESS NOTED. BED ALARM ON. CALL LIGHTIN REACH. WILL CONTINUE TO OBSERVE.
--- NOTE | 2016-09-05 07:30 | NUR ---
SITTING UP IN BED WITH TV ON. HE APPEARS TO BE ASLEEP. EYES CLOSED. RESP EFFORT NON LABORED.
[2016-09-05 08:20] VITALS: BP 125/69
--- NOTE | 2016-09-05 12:12 | RHP ---
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 HISTORY OF PRESENT ILLNESS: The patient is admitted for acute paraparesis of lower extremity due to spinal cord ischemia. He is a 76-year-old gentleman, who has had multiple falls recently. He has increased low back pain that has progressively worsened. His MRI showed compression fracture. He has had a kyphoplasty done on August 25. He recently had increased weakness, fatigue and occasionally tingling in his bilateral lower extremities. This required assistance with transfers from ____ independent with ADLs. He uses a scooter at home for short distance. He is currently ambulating 3 feet with 75% assist, requiring min assist to max assist for ADLs. He and his planning for him to return home at his prior level of functioning or better possible. He has had an acute inpatient stay in the past with successful results. COMORBIDITIES: Include COPD, benign lesion in superior segment of left lower lobe, coronary artery disease; acute compression fracture, stable; chronic compression fractures at L1-L2, acute falls, acute urinary incontinence, he got a history of chronic weakness, emphysema, depression, functional quadriplegia, back pain and chronic nicotine dependence. PAST MEDICAL HISTORY: Significant for hypertension, emphysema, depression, indigestion, and osteoarthritis. PAST SURGICAL HISTORY: Includes bilateral inguinal hernia repairs, cataract surgery. He has had a cyst removed from his neck and also left ring finger surgery. ALLERGIES: No known drug allergies. CURRENT MEDICATIONS: Include polyethylene glycol 17 g in 8 ounces of water daily, thiamine 100 mg daily, Protonix 40 mg daily. He is on a Nicoderm patch daily, multivitamin daily, folic acid daily, B12 of 2000 mcg daily. He is on citalopram. which I am going to discontinue. I am going to continue on Zoloft 50 mg daily, aspirin chewable 81 mg daily, Zofran 4 mg daily, DuoNeb updrafts as needed. He is on Sinemet 1 tab t.i.d. and acetaminophen 500 mg q.6 hours p.r.n. HABITS: No alcohol or tobacco use at this time. He does have a history of tobacco use in the past. FAMILY HISTORY: Noncontributory. SOCIAL HISTORY: The patient hopes to return back home and get back to his prior level of functioning. HISTORY AND PHYSICAL [id number] HOLA FLOWERS REVIEW OF SYSTEMS: GENERAL: Does complain of weakness and fatigue. HEENT: Denies cold, cough, or congestion. CARDIOVASCULAR: Denies chest pain. PHYSICAL EXAMINATION: VITAL SIGNS: Stable, afebrile. GENERAL: Elderly gentleman, in no acute distress, alert upon exam. HEENT: Normocephalic, atraumatic. Mucosa moist. NECK: Supple with no lymphadenopathy. LUNGS: Clear at this time. HEART: Regular rate and rhythm. ABDOMEN: Benign. EXTREMITIES: No clubbing, cyanosis or edema. NEUROLOGIC: Does have some weakness in his legs. LABORATORY DATA: His white count 6.4, H&H 12 and 37, and platelet count 254. Sodium is 140, potassium 3.3, BUN and creatinine of 14 and 1.0 and blood sugar is noted to be 90. ASSESSMENT: This is a 76-year-old gentleman admitted to the rehab with a working diagnosis of acute paraparesis of his lower extremity due to spinal cord ischemia compression fracture. The patient has potential to make improvement. We instituted the following multidisciplinary therapies including to, but not limited to physical, occupational, respiratory, speech, nutritional services, prosthetics and orthotics. Given his complex condition and risk for more complications, rehabilitation services cannot be provided at a low level of care such as a retirement facility. PLAN: 1. Admit to [facility] rehab for intensive inpatient therapy to include the following disciplines: A. Physical therapy to improve gait, all transfer skills and bed mobility to a modified independent level. B. Occupational therapy to improve activities of daily living to a modified independent level. C. Case management to assist with discharge planning and placement options. D. Nutrition to assist with nutritional needs. E. Rehabilitation nursing to assist in monitoring the patient's underlying medical conditions and to assist with any type of bowel or bladder management. 2. The patient's current medication and medical care will be continued. 3. The patient will be placed on standard fall precautions. 4. The patient's estimated length of stay is approximately 7-10 days. 5. Discuss this patient during care team staff meeting this week. TRANSINT:[id number] Voice Confirmation ID: [id number] DOCUMENT ID: [id number] HISTORY AND PHYSICAL [id number] HOLA FLOWERS SCOTT MD at 1212 CC: [id number] DICTATION DATE: 08/29/16 1123 ANTIQUE AUTOM[employer] REPAIRER: 08/29/16 1312 ADM IN [place] [id number] [place] [address]
--- NOTE | 2016-09-05 12:14 | NUR ---
IN ROOM ENCOURAGING PT TO EAT. NO N/V NOTED. HE IS CONFUSED BUT PLEASANT. FOLLOWS SIMPLE ONE STEP COMMANDS. INCONT OF URINE TODAY.
--- NOTE | 2016-09-05 13:36 | NUR ---
Nutrition Follow Up: Pt reported that his appetite is improving. He is eating 57% meal avg on a regular diet. +BM 09/04/16. No new wt to assess. Labs reviewed. Meds noted including Thiamine, Vit B12, MV, Folic Acid. Rec continue current diet. RD following.
--- NOTE | 2016-09-05 15:21 | NUR ---
WORKING WITH SPEECH THERAPY
[2016-09-05 19:16] VITALS: BP 126/52
--- NOTE | 2016-09-05 19:25 | NUR ---
PT RESTING IN BED, DENEIS NEEDS. WCTM. BED LOW. CL IN REACH.
--- NOTE | 2016-09-05 20:50 | NUR ---
PT HS MEDS ADMINISTERED. PT DENIES FURTHER NEEDS. BED LOW. CL IN REACH.
--- NOTE | 2016-09-05 22:10 | NUR ---
PT LYING IN BED WATCHING TV, DENIES NEEDS. BED LOW. CL IN REACH.
--- NOTE | 2016-09-06 00:15 | NUR ---
PT RESTING, EYES CLOSED. BED LOW. CLI N REACH.
--- NOTE | 2016-09-06 02:20 | NUR ---
PT RESTING, EYES CLOSED. RR ARE EVEN ADN UNLABORED. WCTM. BED LOW. CL IN REACH.
--- NOTE | 2016-09-06 04:49 | NUR ---
PT RESTING, EYES CLOSED. BED LOW. CLIN REACH.
--- NOTE | 2016-09-06 06:06 | NUR ---
PT AM MEDS ADMINISTERED. PT PINK PAD ADN CLOTHING CHAGNED DUE TO INCONT URINE. PT DENIES NEEDS. BED LOW. CL IN REACH.
[2016-09-06 06:26] LABS: BASOPHILS 0.6 % (0-2); EOSINOPHILS 6.3 % (0-7); HEMATOCRIT 35.6 % (42.0-54.0); IMMATURE GRANULOCYTES 0.3 % (0-5); LYMPHOCYTES 37.5 % (15-50); MCH 31.7 pg (26.0-34.0); MCHC 33.7 g/dL (31.0-37.0); MCV 94.2 fL (80.0-100.0); MEAN PLATELET VOLUME 9.7 fL (7.4-10.4); MONOCYTES 8.9 % (2-11); NEUTROPHILS 46.4 % (40-80); PLATELET COUNT 274 10x3/uL (130-400); RBC 3.78 10x6/uL (4.20-6.10); RDW 13.9 % (11.5-14.5); WBC 6.2 10x3/uL (4.8-10.8)
[2016-09-06 06:42] LABS: CALCIUM 8.6 mg/dL (8.5-10.1); CREATININE - SERUM 1.1 mg/dL (0.6-1.3)
[2016-09-06 07:51] VITALS: BP 129/68
--- NOTE | 2016-09-06 08:00 | NUR ---
SHIFT ASSMT COMPLETED.CL IN REACH.
--- NOTE | 2016-09-06 12:00 | NUR ---
UP IN BED FOR LUNCH.CL IN REACH. AT BEDSIDE.
--- NOTE | 2016-09-06 13:55 | NUR ---
CARE TEAM MEETING: PATIENT TENATIVE DISCHRGE DATE IS 09/18/16. DR. SEAMAN IS PATIENT PCP, HE HAS A ELPIDIO, W/C, SHOWER CHAIR AND BSC. [facility]. WILL CONTINUE TO FOLLOW WITH PATIENT UNTIL DISCHARGED
[2016-09-06 20:16] VITALS: BP 135/90
--- NOTE | 2016-09-06 20:48 | NUR ---
PT WATCH TV, STATE LIKE TO WATCH NEWS CHANNEL.
--- NOTE | 2016-09-06 23:33 | NUR ---
PT REST QUIETLY IN BED WITH EYE CLOSE, BED IN LOW POSITION, CALL LIGHT WITHIN REACH.
--- NOTE | 2016-09-07 00:58 | NUR ---
PT REST QUIETLY IN BED, EYE CLOSE, BED IN LOW POSITION, CALL LIGHT WITHIN REACH.
--- NOTE | 2016-09-07 01:30 | NUR ---
RESTING IN BED, EYES CLOSED.
--- NOTE | 2016-09-07 02:13 | NUR ---
PT INCONTINENCE, CHANGE CLOTHES AND LINEN
[2016-09-07 08:00] VITALS: BP 118/70
--- NOTE | 2016-09-07 08:00 | NUR ---
ASSISTED OOB TO BATHROOM;SITTING UP IN WC.MEAL SET-UP GIVEN.CL IN REACH.ALARM ON.
--- NOTE | 2016-09-07 12:00 | NUR ---
SITTING UP IN ROOM FOR LUNCH. AT BEDSIDE.CL IN REACH.ALARM ON.
[2016-09-07 18:54] VITALS: BP 110/64
--- NOTE | 2016-09-07 19:35 | NUR ---
PT RECEIVED IN WHEELCHAIR AT BEDSIDE. URINAL EMPTIED. NO OTHER NEEDS MADE KNOWN. CALL LIGHT IN REACH. WILL CONTINUE TO OBSERVE.
--- NOTE | 2016-09-08 01:07 | NUR ---
PT IN BED WITH EYES CLOSED AND CHEST RISING. NO SIGN/SYMPTOMS OF DISTRESS NOTED. CALL LIGHT IN REACH. LINK BED ALARM ON. WILL CONTINUE TO OBSERVE.
[2016-09-08 06:51] LABS: BASOPHILS 0.4 % (0-2); EOSINOPHILS 4.9 % (0-7); HEMATOCRIT 35.2 % (42.0-54.0); HEMOGLOBIN 11.6 g/dL (13.5-17.5); IMMATURE GRANULOCYTES 0.3 % (0-5); LYMPHOCYTES 34.9 % (15-50); MCH 31.2 pg (26.0-34.0); MCV 94.6 fL (80.0-100.0); MEAN PLATELET VOLUME 9.3 fL (7.4-10.4); MONOCYTES 10.3 % (2-11); NEUTROPHILS 49.2 % (40-80); PLATELET COUNT 249 10x3/uL (130-400); RBC 3.72 10x6/uL (4.20-6.10); RDW 13.9 % (11.5-14.5); WBC 7.4 10x3/uL (4.8-10.8)
[2016-09-08 07:06] LABS: ANION GAP 7.3 mmol/L (8-16); CALCIUM 8.6 mg/dL (8.5-10.1); CARBON DIOXIDE 28.7 mmol/L (21.0-32.0); CREATININE - SERUM 1.2 mg/dL (0.6-1.3)
--- NOTE | 2016-09-08 07:30 | NUR ---
SITTING UP IN BED RESTING WITH EYES CLOSED. BED ALARM IN PLACE. CALL LIGHT IN REACH
[2016-09-08 12:16] VITALS: BP 105/60
[2016-09-08 18:52] VITALS: BP 134/67
--- NOTE | 2016-09-08 19:50 | NUR ---
PT SITTING UP IN CHAIR, CHAIR ALARM ON, WATCHING TV. ALERT AND ORIENTED TO PERSON AND PLACE. CALL LIGHT WITHIN REACH.
--- NOTE | 2016-09-08 23:50 | NUR ---
PT SITTING UP IN CHAIR, WATCHING TV, CALL LIGHT WITHIN REACH.
--- NOTE | 2016-09-09 03:50 | NUR ---
PT LYING IN BED, EYES CLOSED, CHEST RISING AND FALLING, BED ALARM ON, BED IN LOWEST POSITION AND CALL LIGHT WITHIN REACH.
--- NOTE | 2016-09-09 04:05 | NUR ---
PT WAS INCONTINENT OF URINE IN BED. COMPLETE LINEN CHANGE.
--- NOTE | 2016-09-09 05:50 | NUR ---
pt needed assist getting back into bed. Respirations regular and unlabored no s/s of acute dd
[2016-09-09 07:00] VITALS: BP 120/68
--- NOTE | 2016-09-09 07:30 | NUR ---
LAYING IN BED WITH NO PANTS OR UNDERWEAR ON. STATES HE TOOK THEM OFF DUE TO BEING WET AND WAS JUST WAITING ON SOMEONE TO BRING HIM MORE UNDERWEAR.....NURSE GOT HIM MORE CLOTHES.
--- NOTE | 2016-09-09 10:00 | NUR ---
LAYING IN BED QUIETLY WATCHING TV. BED ALARM IN USE. ALSO HAS CHAIR ALARM. HIS BODY IS RIDID AND STIFF WHEN HE TRIED TO SCOOT UP IN BED. REMAINS PLEASANTLY CONFUSED. IS COOPERATIVE
--- NOTE | 2016-09-09 17:13 | NUR ---
SITTING UP IN W/C WATCHING TV. DENIES NEEDS OR C/O. CALL LIGHT IN REACH
--- NOTE | 2016-09-09 18:16 | NUR ---
SITTING UP IN W/C VISITING WITH . DENIES NEEDS
--- NOTE | 2016-09-09 19:15 | NUR ---
PT IN BED WITH HOB UP FOR COMFORT, WATCHING TV. PT STATES HE HAS NO NEEDS OR COMPLAINTS AT THIS TIME, URINAL EMPTIED, BED ALARM ON AND BED IN LOWEST POSITION. CALL LIGHT WITHIN REACH.
[2016-09-09 19:16] VITALS: BP 117/67
[2016-09-10 07:00] VITALS: BP 115/67
--- NOTE | 2016-09-10 07:30 | NUR ---
RESTING QUIETLY IN BED WITH EYES CLOSED. HEAD OF BED ELEVATED 45 DEGREES. BED ALARM IN USE.
--- NOTE | 2016-09-10 12:20 | NUR ---
SITTING UP EATING LUNCH. FAMILY VISITING. USED URINAL X2 THIS MORNING. REMAINS CONFUSED BUT COOPERATIVE. BODY IS STIFF AND RIDGED. MOD ASST TO TRANSFER. HAS POOR BALANCE. APPETITE REMAINS POOR.
--- NOTE | 2016-09-10 17:46 | NUR ---
SITTING UP FOR SUPPER. HAS RESTED IN BED MOST OF DAY AND WATCHED TV AND NAPPED. DENIES PAIN OR NEEDS. IN ROOM VISITING
[2016-09-10 19:38] VITALS: BP 127/78
--- NOTE | 2016-09-10 20:25 | NUR ---
PT IN BED WITH EYES OPEN WATCHING TV. NO COMPLAINTS OF PAIN OR DISCOMFORT. NO OTHER NEEDS MADE KNOWN. CALL LIGHT IN REACH. WILL CONTINUE TO OBSERVE.
--- NOTE | 2016-09-10 23:16 | NUR ---
PT IN BED WITH EYES OPEN WATCHING TV. SHOWERED OFFERED AND REFUSED STATING HE WILL TAKE ONE IN THE MORNING. NO OTHER NEEDS MADE KNOWN. CALL LIGHT IN REACH. WILL CONTINUE TO OBSERVE.
--- NOTE | 2016-09-11 03:14 | NUR ---
PT IN BED WITH EYES CLOSED AND CHEST RISING. NO SIGN/SYMPTOMS OF DISTRESS NOTED. CALL LIGHT IN REACH. LINK BED ALARM ON. WILL CONTINUE TO OBSERVE.
--- NOTE | 2016-09-11 06:11 | NUR ---
PT IN BED WITH EYES OPEN WATCHING TV. REFUSED OFFER FOR SHOWER. NO OTHER NEEDS OR CONCERNS. CALL LIGHT IN REACH.
[2016-09-11 08:48] VITALS: BP 120/81
[2016-09-11 18:43] VITALS: BP 119/69
--- NOTE | 2016-09-11 19:50 | NUR ---
PT SIT UP IN CHAIR WATCHING TV.
--- NOTE | 2016-09-11 22:32 | NUR ---
PT REST IN BED WITH EYE CLOSE, BED IN LOW POSITION, CALL LIGHT WITHIN REACH.
--- NOTE | 2016-09-12 01:30 | NUR ---
PT INCONTINENCE, CHANGE GOWN AND LINEN.
--- NOTE | 2016-09-12 03:50 | NUR ---
RESTING IN BED, EYES CLOSED. EARIER ON SHIFT I ASSISTED PATIENT'S NURSE TO TURN PATIENT FROM PRONE POSITION IN BED TO SUPINE WITH HEAD ELEVATED SO THAT HE COULD TAKE HIS MEDICATIONS.
--- NOTE | 2016-09-12 04:37 | NUR ---
PT REST QUIETLY WITH EYE CLOSE, BED IN LOW POSITION, CALL LIGHT WITHIN REACH.
[2016-09-12 09:11] VITALS: BP 133/59
--- NOTE | 2016-09-12 19:45 | NUR ---
[facility] AND WATCH TV.
[2016-09-12 20:49] VITALS: BP 134/64
--- NOTE | 2016-09-12 22:35 | NUR ---
PT REST QUIETLY IN BED WITH EYE CLOSE, BED IN LOW POSITION, CALL LIGHT WITHIN REACH.
--- NOTE | 2016-09-13 | NUR ---
RESTING QUIETLY IN BED, EYES CLOSED.
--- NOTE | 2016-09-13 05:01 | NUR ---
PT INCONTINENCE,CHANGE GOWN AND LINEN.
--- NOTE | 2016-09-13 07:43 | NUR ---
SITTING UP IN BED EATING BREAKFAST. STILL CONFUSED BUT COOPERATIVE. FOLLOWS REQUESTS WITH OUT COMPLAINT. INCONT OF URINE. DENIES SOB OR PAIN. CALL LIGHT IN REACH
[2016-09-13 07:54] LABS: BASOPHILS 0.5 % (0-2); EOSINOPHILS 4.1 % (0-7); HEMATOCRIT 36.1 % (42.0-54.0); HEMOGLOBIN 11.9 g/dL (13.5-17.5); IMMATURE GRANULOCYTES 0.3 % (0-5); LYMPHOCYTES 26.6 % (15-50); MCH 31.3 pg (26.0-34.0); MEAN PLATELET VOLUME 9.5 fL (7.4-10.4); MONOCYTES 9.7 % (2-11); NEUTROPHILS 58.8 % (40-80); PLATELET COUNT 236 10x3/uL (130-400); RDW 14.2 % (11.5-14.5); WBC 7.7 10x3/uL (4.8-10.8)
[2016-09-13 08:09] LABS: ANION GAP 11.3 mmol/L (8-16); CALCIUM 8.6 mg/dL (8.5-10.1); CARBON DIOXIDE 26.6 mmol/L (21.0-32.0); CREATININE - SERUM 1.1 mg/dL (0.6-1.3); POTASSIUM - SERUM 3.9 mmol/L (3.5-5.1)
[2016-09-13 10:04] VITALS: BP 125/69
--- NOTE | 2016-09-13 12:14 | NUR ---
SITTING UP IN BED EATING LUNCH. STILL CONFUSED BUT COOPERATIVE. DENIES PAIN. CALL LIGHT IN REACH
--- NOTE | 2016-09-13 13:46 | NUR ---
Nutrition Follow Up: Chart reviewed and pt discussed in rehab staffing. Pt is eating 66% meal avg on a regular diet. +BM 09/12/16. No new wt to assess. Meds noted including Thiamine, MV, Folic Acid, Vit B12. Labs reviewed - BUN elevated. Pt with fair po intake at this time. Rec continue current diet. RD will continue to monitor pt progress.
--- NOTE | 2016-09-13 15:30 | NUR ---
CARE TEAM MEETING: PATIENT TENATIVE DISCHARGE DATE IS 09/18/16. PATIENT PLANS TO RETURN HOME. WILL CONTINUE TO FOLLOW WITH PATIENT UNTIL DISCHARGED
[2016-09-13 19:00] VITALS: BP 126/72
--- NOTE | 2016-09-13 19:30 | NUR ---
PT IN BED WITH HOB UP FOR COMFORT, RESTING QUIETLY, NO O2, NO IV, BED ALARM ON, SIDE RAILS X2, BED IN LOWEST POSITION AND CALL LIGHT WITHIN REACH.
--- NOTE | 2016-09-13 23:25 | NUR ---
PT LYING IN BED, WATCHING TV. BED IN LOWEST POSITION AND CALL LIGHT WITHIN REACH.
--- NOTE | 2016-09-14 01:45 | NUR ---
RESTING IN BED, EYES CLOSED. NO DISTRESS NOTED.
--- NOTE | 2016-09-14 04:24 | NUR ---
PT LYING IN BED, EYES CLOSED, CHEST RISING AND FALLING, BED IN LOWEST POSITION AND CALL LIGHT WITHIN REACH.
--- NOTE | 2016-09-14 07:57 | NUR ---
SITTING UP IN BED EATING BREAKFAST. STILL CONFUSED BUT COOPERATIVE AND PLEASANT. FOLLOWS COMMANDS AND DENIES PAIN. BODY IS STIFF AND RIDGID BUT CAN SCOOT SELF UP IN BED. CALL LIGHT IN REACH
[2016-09-14 09:59] VITALS: BP 120/68
--- NOTE | 2016-09-14 11:39 | NUR ---
PATIENT DISCHRGING HOME WITH SPOUSE ON 09/15/16 . [facility]. NO NEW DME NEEDED AT THIS TIME.HE HAS WALKER, W/C AND SHOWER CHAIR AT HOME. DR. SEAMAN 09/25/16 @ 11:30. PATIENT CHOICE FORM FOR HOME HEALTH AND [facility] FORM SIGNED, EXPLAINED AND FILED IN CHART. PATIENT EDUCATED ON SAFETY TRANSFERS. PATIENT VOICE UNDERSTANDING. WILL CONTINUE TO FOLLOW WITH PATIENT UNTIL DISCHARGED
--- NOTE | 2016-09-14 18:06 | NUR ---
SITTING UP IN BED EATING SUPPER. IN ROOM WITH PT HELPING HIM WITH SUPPER. HE REMAINS INCONT OF URINE. STILL CONFUSED. MAX ASST TO STAND AND TRANSFER.
--- NOTE | 2016-09-14 20:02 | NUR ---
PT SIT IN BED WATCHING TV.
--- NOTE | 2016-09-14 23:33 | NUR ---
PT REST QUIETY IN BED, DENIES PAIN AND NEEDS.
[2016-09-15 02:05] VITALS: BP 125/66
--- NOTE | 2016-09-15 03:36 | NUR ---
PT REST QUIETLY IN BED WITH EYE CLOSE, BED IN LOW POSITION, CALL LIGHT WITHIN REACH.
--- NOTE | 2016-09-15 07:30 | NUR ---
RESTING QUIETLY IN BED. EYES CLOSED. CALL LIGHT IN REACH
[2016-09-15 08:47] VITALS: BP 117/65
--- NOTE | 2016-09-15 11:56 | NUR ---
SITTING UP IN W/C IN ROOM. IN ROOM WITH PT. THEY WANT TO D/C AND NOT EAT LUNCH HERE. PT DRESSED AND PAPERWORK AND D/C INSTRUCTIONS WENT OVER WITH AND PT. HE WAS D/C WITH ALL PERSONAL BELONGINGS. DENIES NEEDING ANY MEDS CALLED IN FOR HIM.
--- NOTE | 2016-09-15 12:17 | NUR ---
PATIENT ASSIT TO PRIVATE CAR VIA WHEELCHAIR.
== END 2016-09-15 12:02 | disposition home health service (06) | DRG 949 ==
LOC: D.REHAB 18:55
PROVIDERS: ADMIT Emergency Medicine
DX: S34.105D Unspecified injury to L5 level of lumbar spinal cord, subsequent encounter (principal); G95.11 Acute infarction of spinal cord (embolic) (nonembolic); G82.20 Paraplegia, unspecified; F17.203 Nicotine dependence unspecified, with withdrawal; S32.059D Unspecified fracture of fifth lumbar vertebra, subsequent encounter for fracture with routine healing; W19.XXXD Unspecified fall, subsequent encounter; I25.10 Atherosclerotic heart disease of native coronary artery without angina pectoris; R32 Unspecified urinary incontinence; J43.9 Emphysema, unspecified; F32.9 Major depressive disorder, single episode, unspecified